=== PATIENT | female | born 1950 | race Caucasian/White ===

== ENCOUNTER 2018-11-25 09:46 | Emergency (ER) | payer BC ==
[~2018-11-25] VITALS: Ht 157.5 cm; Wt 63.5 kg
--- NOTE | 2018-11-25 10:53 | Diagnostic Imaging Report ---
Shoulder right limited CPT code: 25077 Indication: Fall, pain. Technique: Internal and external images right shoulder obtained without comparison. Findings: There is no current dislocation. No evidence of fracture involving humeral head. Visualized proximal shaft is intact. The clavicle is intact. Mild degenerative spurring involves distal clavicle and acromion. Mild degenerative changes of the glenohumeral joint. These appear properly aligned. No fracture evident involving the visualized portion of the scapula. Portions are overlapped by lateral ribs on all images however. IMPRESSION: 1. No evidence of acute fracture or dislocation involving the shoulder. 2. Mild degenerative spurring of the glenohumeral and acromioclavicular joints. Signed by: Dr. Marc Gomez MD on 11/25/2018 10:49 AM
--- NOTE | 2018-11-25 10:58 | Diagnostic Imaging Report ---
Elbow left limited CPT code: 56725 Indication: Trauma Technique: A.P. and lateral views of the elbow obtained without comparison Findings: Osseous structures are well-developed and mineralized without fracture, dislocation, or focal osseous lesions. No elbow effusion. No radiopaque foreign body in the soft tissues. IMPRESSION: No acute traumatic pathology. Signed by: Dr. Marc Gomez MD on 11/25/2018 10:54 AM
[2018-11-25] MEDS ORDERED: KETOROLAC TROMETHAMINE 60 MG/2 ML VIAL ONE (10:59)
[2018-11-25] MEDS ORDERED: KETOROLAC TROMETHAMINE 60 MG/2 ML VIAL IM NR (11:00)
[2018-11-25 11:44] VITALS: BP 162/89
== END 2018-11-25 11:45 | disposition home or self-care (01) ==
LOC: FSED 09:46
DX: S50.311A Abrasion of right elbow, initial encounter (principal); S50.811A Abrasion of right forearm, initial encounter; S43.421A Sprain of right rotator cuff capsule, initial encounter; W06.XXXA Fall from bed, initial encounter; Y93.84 Activity, sleeping; Y92.003 Bedroom of unspecified non-institutional (private) residence as the place of occurrence of the external cause; E78.5 Hyperlipidemia, unspecified
CPT/HCPCS: 73030; 73070; 99283; J1885